=== PATIENT | male | born 1985 | race Caucasian/White ===

== ENCOUNTER 2025-01-03 07:02 | Day surgery (SDC) | payer BC, OTHER ==
[2024-12-13 13:58] VITALS: BMI 23.9
[2025-01-03 10:25] VITALS: TEMP 98
[2025-01-03 11:22] VITALS: BP 105/57; PULSE 49; RESP 18
== END 2025-01-03 11:22 | disposition home or self-care (01) ==
LOC: JASU-ENDO 07:02
PROVIDERS: ATTEND Internal Medicine Gastroenterology
PROC: 0DBP8ZX Excision of Rectum, Via Natural or Artificial Opening Endoscopic, Diagnostic (ICD-10-PCS; principal; 2025-01-03 10:00)
DX: Z12.11 Encounter for screening for malignant neoplasm of colon (principal); D12.8 Benign neoplasm of rectum; K64.8 Other hemorrhoids
CPT/HCPCS: 88305-TC